=== PATIENT | female | born 1945 ===

== ENCOUNTER 2021-09-05 06:00 | Outpatient (RCR) | payer MEDICARE, SELFPAY | END 2021-09-25 23:59 | disposition home or self-care (01) | LOC: TPT 06:00 | PROVIDERS: Referring Provider Nurse Practitioner Family; Visit Provider Nurse Practitioner Family | DX: M43.16 Spondylolisthesis, lumbar region (principal); M51.36 Other intervertebral disc degeneration, lumbar region | CPT/HCPCS: 97110; 97163 ==

== ENCOUNTER 2021-09-26 06:00 | Outpatient (RCR) | payer MEDICARE, SELFPAY | END 2021-10-26 23:59 | disposition home or self-care (01) | LOC: TPT 06:00 | PROVIDERS: Referring Provider Nurse Practitioner Family; Visit Provider Nurse Practitioner Family | DX: M43.16 Spondylolisthesis, lumbar region (principal); M51.36 Other intervertebral disc degeneration, lumbar region; M54.6 Pain in thoracic spine | CPT/HCPCS: 97110; 97164 ==

== ENCOUNTER 2021-10-27 06:00 | Outpatient (RCR) | payer MEDICARE, SELFPAY | END 2021-11-02 23:59 | disposition home or self-care (01) | LOC: TPT 06:00 | PROVIDERS: Referring Provider Nurse Practitioner Family; Visit Provider Nurse Practitioner Family | DX: M43.16 Spondylolisthesis, lumbar region (principal); M51.36 Other intervertebral disc degeneration, lumbar region | CPT/HCPCS: 97110 ==